=== PATIENT | male | born 1965 | race Caucasian/White ===

== ENCOUNTER 2017-06-27 11:12 | Emergency (ER) | payer OTHER ==
[~2017-06-27 11:12] MED LIST: ALBUTEROL MININEB NEB; ALBUTEROL17 GM INH; ALPRAZOLAM PO; AMBIEN PO; BETA BLOCKER PO; BLOOD THINNER PO; FISH OIL300 MG; KEFLEX500 M1 PO; LISINOPRIL10 MG PO; PAXIL30 MG; SIMVASTATIN40 MG PO; TOPROL XL PO; VICODIN 5/1 TAB 5/50 PO; VOLTAREN50 MG PO; ZITHROMAX PO
== END 2017-06-27 14:43 | disposition expired ==
LOC: SED 11:12
DX: I46.9 Cardiac arrest, cause unspecified (principal); I10 Essential (primary) hypertension; E78.5 Hyperlipidemia, unspecified; J44.9 Chronic obstructive pulmonary disease, unspecified; G47.30 Sleep apnea, unspecified; F17.210 Nicotine dependence, cigarettes, uncomplicated; Z98.890 Other specified postprocedural states; Z91.013 Allergy to seafood; Z79.899 Other long term (current) drug therapy
CPT/HCPCS: 92950; 99285